=== PATIENT | female | born 1995 | race Hispanic/Latino ===

== ENCOUNTER 2019-01-11 18:43 | Emergency (ER) | payer BC ==
[2019-01-11 19:15] VITALS: O2SAT 100
[2019-01-11] MEDS ORDERED: Dexamethasone 10 MG in Sodium Chloride 0.9% 50 ML IV STA (19:28)
[2019-01-11] MEDS ORDERED: Sodium Chloride 0.9% 1,000 ML IV STA (19:29)
--- NOTE | 2019-01-11 19:34 | ED PDOC ---
HPI: CCC, URI, Sore Throat Time Seen by Provider: 01/11/19 19:20 Chief Complaint (Nursing): ENT Problem Chief Complaint (Provider): THROAT PAIN History Per: Patient History/Exam Limitations: no limitations Have you had recent travel within the past 21 days to any of the following countries: [place], [place], [place] or [place]?: No Onset/Duration Of Symptoms: Days, Persistent Current Symptoms Are (Timing): Constant Location Of Pain: Ear(s) (RIGHT EAR PAIN) Sick Contacts (Context): None Associated Symptoms: Sore Throat, Neck Pain. denies: Fever, Chills, Cough, Sinus Drainage, Nasal Congestion, Nausea, Vomiting, Diarrhea Severity: Moderate Pain Scale Rating Of: 6 Additional History Per: Patient Additional Complaint(s): 23 YEAR FEMALE PRESENTS TO THE EMERGENCY ROOM C/O THROAT PAIN FOR 3 WEEKS. PATIENT STATES SHE COMPLETED A COURSE F 10 DAYS AMOXCILLIN ON THURSDAY AND SECOND COURSE OF PREDNISONE ON THURSDAY. THURSDAY MORNING SHE STATES SHE HAD THE SAME THROAT PAIN. SHE WAS SEEN AT [facility] AND INSTRUCTED TO COME TO ED FOR EVAL. PATIENT DENIES FEVER, NAUSEA, VOMITING OR ABD PAIN. PATIENT STATES SHE WAS TESTED FOR MONO, STREP WITH NEGATIVE RESULTS. Past Medical History Reviewed: Historical Data, Nursing Documentation, Vital Signs Vital Signs: Last Vital Signs Temp 98.7 F 01/11/19 19:10 Pulse 61 01/11/19 19:10 Resp 16 01/11/19 19:10 BP 112/71 01/11/19 19:10 Pulse Ox 100 01/11/19 19:10 - Medical History PMH: No Chronic Diseases - Surgical History Surgical History: No Surg Hx - Family History Family History: States: Unknown Family Hx - Home Medications Home Medications: Ambulatory Orders Medication Instructions Recorded Clindamycin [Cleocin] 300 mg PO Q8H #30 cap 01/11/19 - Allergies Allergies/Adverse Reactions: Allergies Allergy/AdvReac Type Severity Reaction Status Date / Time No Known Allergies Allergy Verified 01/11/19 19:10 Review of Systems ROS Statement: Except As Marked, All Systems Reviewed And Found Negative Constitutional: Negative for: Fever, Chills, Weakness, Malaise ENT: Positive for: Mouth Pain (PATIENT AHS DIFFICULTY OPENING JAW., SWALLOWING FOOD AND SECRETIONS. ), Throat Pain, Throat Swelling Respiratory: Negative for: Cough, Shortness of Breath Gastrointestinal: Negative for: Nausea, Vomiting, Abdominal Pain Physical Exam - Reviewed Nursing Documentation Reviewed: Yes Vital Signs Reviewed: Yes - Physical Exam Appears: Positive for: Well, Non-toxic, No Acute Distress Head Exam: Positive for: ATRAUMATIC, NORMAL INSPECTION, NORMOCEPHALIC Skin: Positive for: Normal Color, Warm, DRY Eye Exam: Positive for: EOMI, Normal appearance, PERRL ENT: Positive for: Normal ENT Inspection, Pharynx Is (ERYTHEMATOUS ), Tonsillar Swelling (WITH EXUDATE) Neck: Positive for: Normal, Pain On Movement Of Neck Cardiovascular/Chest: Positive for: Regular Rate, Rhythm Respiratory: Positive for: CNT, Normal Breath Sounds Gastrointestinal/Abdominal: Positive for: Normal Exam, Soft Back: Positive for: Normal Inspection Extremity: Positive for: Normal ROM Neurological/Psych: Positive for: Awake, Alert, Normal Tone, Oriented - Laboratory Results Result Diagrams: 01/11/19 19:35 01/11/19 19:35 - ECG O2 Sat by Pulse Oximetry: 100 Medical Decision Making Medical Decision Making: CBC CMP CT NECK AND SOFT TISSUES (R/O PTA0 DECARDON 10MG IV 0.9NS 1 L UPREG throat culture rapid strep (-) IV INSERTION Name: SHAQUILLE DAVIDSON Exam Date: Jan 11, 2019 8:25:03 PM EDT Modality Type: CT Description: CT - NECK WITH CORONAL AND SAGITTAL MPRS Gender: F Laterality: Not applicable : 94 Referring Physician: Janis Ponce EXAM: CT Neck with Intravenous Contrast. CLINICAL HISTORY: R/o peritonsillar abcess TECHNIQUE: Axial computed tomography images of the neck with intravenous contrast. Sagittal and coronal reformatted images were generated. 308.04 mGy-cm CONTRAST: With; [id number] 90ML COMPARISON: None provided. FINDINGS: PHARYNX: Unremarkable appearance of the nasopharynx and hypopharynx. Fullness of the palatine tonsils bilaterally compatible with tonsillitis. No peritonsillar abscess formation detected. No pharyngeal mucosal based mass lesions. LARYNX: The larynx is unremarkable. The epiglottis appears normal. RETROPHARYNGEAL SPACE: No retropharyngeal soft tissue swelling or gas. SALIVARY GLANDS: No salivary gland abnormality evident. Unremarkable appearance of the parotid, submandibular, and sublingual glands. LYMPH NODES: No significant lymphadenopathy. THYROID: The thyroid gland is unremarkable. No nodule is evident. BONES: No aggressive appearing osseous lesion. No acute osseous abnormality. INCIDENTAL: Incidental discovery is made of a 1.1 cm mucous retention cyst or polyp in the medial right maxillary sinus. IMPRESSION: 1. Evidence of bilateral tonsillitis. No peritonsillar abscess detected. Electronically signed on Jan 11, 2019 9:30:33 PM EDT by: Emir Carlson M.D., M.B.A., Certified By [employer] Trained MRI and CT Specialist 21:45: Ct scan negative for peritonsillar asbcess. Clincial findings discussed with patient. Patient started on clindamycin 300mg in ED and given rx to continue to [address] Combs for ENT. Patient advised throat culture sent if positive and need for change in treatment she will be called in 2-3 days. Follow-up with PMD as needed. Return to ED precautions given patient starts understanding and agrees with plan. Disposition - Clinical Impression Clinical Impression: Tonsillitis - Patient ED Disposition Is Patient to be Admitted: No - Disposition Referrals: Florin Bolivar MD [Staff Provider] - Disposition: Routine/Home Disposition Time: 21:45 Condition: STABLE Prescriptions: Clindamycin [Cleocin] 300 mg PO Q8H #30 cap Instructions: Sore Throat, Adult (DC) Forms: [facility] ED School/Work Excuse - POA Present On Arrival: None
[2019-01-11 19:52] LABS: HEMOGLOBIN 13.4 g/dL (12.0-16.0); MEAN CELL VOLUME 92.5 fl (81.0-99.0); MEAN CORPUSCULAR HEMOGLOBIN 30.9 pg (27.0-31.0); MEAN CORPUSCULAR HGB CONC 33.4 g/dL (33.0-37.0); RBC 4.32 Mil/uL (3.80-5.20)
[2019-01-11 20:04] LABS: ALB/GLOB RATIO 1.3 (1.0-2.1); ALBUMIN 4.2 g/dL (3.5-5.0); ALT/SGPT 45 U/L (9-52); AST/SGOT 35 U/L (14-36); BLOOD UREA NITROGEN 11 mg/dl (7-17); CALCIUM 9.3 mg/dL (8.4-10.2); GFR NON-AFRICAN AMERICAN > 60
[2019-01-11] MEDS ORDERED: Iohexol 300 100 ML IJ ONE (20:17)
[2019-01-11] MEDS ORDERED: Sodium Chloride 0.9% 50 ML IV ONE (20:18)
[2019-01-11 22:06] VITALS: BP 118/70; PULSE 64; RESP 18; TEMP 98.1
--- NOTE | 2019-01-12 18:50 | CT ---
Date of service: 01/11/2019 PROCEDURE: CT NECK WITH CONTRAST HISTORY: R/O PERITONSILLAR ABSCESS COMPARISON: None available. TECHNIQUE: CT of the neck with intravenous contrast. Coronal and sagittal reformats generated. Intravenous contrast dose: 90 cc Omnipaque 300 Radiation dose: Total exam DLP = 308.04 mGy-cm. This CT exam was performed using one or more of the following dose reduction techniques: Automated exposure control, adjustment of the mA and/or kV according to patient size, and/or use of iterative reconstruction technique. FINDINGS: NASOPHARYNX: Unremarkable. SUPRAHYOID NECK: There is enlarged bilateral palatine tonsils which encroach medially slightly reducing the nida pharyngeal airway.. No definitive evidence of peritonsillar abscess. Minimal asymmetry of the vallecula likely due to some encroaching lingual tonsils. Some residual and or retained secretion may contribute. Remaining oral cavity, parapharyngeal space and retropharyngeal space otherwise unremarkable... INFRAHYOID NECK: Unremarkable larynx, hypopharynx, and supraglottic space. Vocal cords intact. MASS: No large cervical masses or collections. GLANDS: Parotid and submandibular glands unremarkable. Normal size thyroid gland, without nodule. LYMPH NODES: There is mildly enlarged right level 2 lymph node (right jugulodigastric region which measures approximately 19 mm. Some vague infiltration changes are seen in the adjacent subcutaneous fat nonspecific.. CERVICAL SPINE: No fracture or focal lesion. There is straightening of the normal cervical lordosis which may be in part due to patient positioning gantry however underlying element of mild muscle spasm may contribute. VASCULAR STRUCTURES: Unremarkable. OTHER FINDINGS: Small focus of polypoid like mucosal thickening right maxillary antrum IMPRESSION: There enlargement of the palatine tonsils that encroach medially slightly reducing the nida pharyngeal airway. No evidence of peritonsillar abscess. Mildly enlarged right jugulodigastric lymph node
== END 2019-01-11 22:04 | disposition home or self-care (01) ==
LOC: H.ER 18:43
DX: J03.90 Acute tonsillitis, unspecified (principal)
CPT/HCPCS: 70491; 80053; 81025; 85027; 87070; 87430; 96374; 99284; J1100; J7030; Q9967

== ENCOUNTER 2019-02-03 11:44 | Observation (INO) | payer BC ==
[2019-02-03 12:14] VITALS: BMI 29.9
[2019-02-03] MEDS ORDERED: Dexamethasone 10 MG in Sodium Chloride 0.9% 50 ML IV STA (12:34)
[2019-02-03] MEDS ORDERED: Sodium Chloride 0.9% 1,000 ML IV SCH (12:45)
[2019-02-03 13:19] LABS: BASO % 0.2 % (0.0-2.0); EOS % 0.1 % (0.0-4.0); HEMOGLOBIN 12.9 g/dL (12.0-16.0); MEAN CORPUSCULAR HEMOGLOBIN 31.3 pg (27.0-31.0); MEAN CORPUSCULAR HGB CONC 33.3 g/dL (33.0-37.0); MEAN PLATELET VOLUME 7.9 fl (7.2-11.7); MONO # 0.6 K/uL (0.0-0.8); NEUT # 12.8 K/uL (1.8-7.0); NEUT % 82.7 % (50.0-75.0); NRBC % 0.1 % (0.0-0.0); RBC 4.12 Mil/uL (3.80-5.20); RED CELL DISTRIBUTION WIDTH 13.1 % (11.5-14.5); WHITE BLOOD COUNT 15.4 K/uL (4.8-10.8)
[2019-02-03 13:40] LABS: ALB/GLOB RATIO 1.3 (1.0-2.1); ALBUMIN 4.4 g/dL (3.5-5.0); ALT/SGPT 30 U/L (9-52); AST/SGOT 27 U/L (14-36); BLOOD UREA NITROGEN 13 mg/dl (7-17); CALCIUM 9.1 mg/dL (8.4-10.2); GFR NON-AFRICAN AMERICAN > 60
[2019-02-03 13:53] LABS: SQUAMOUS EPITHIAL 2 /hpf (0-5); URINE BACTERIA MANY (<OCC); URINE BILIRUBIN NEGATIVE (NEGATIVE); URINE BLOOD NEGATIVE (NEGATIVE); URINE CLARITY SLIGHTY-CLOUDY (Clear); URINE COLOR YELLOW (YELLOW); URINE GLUCOSE (UA) NEG (NEGATIVE); URINE LEUKOCYTE ESTERASE TRACE Leu/uL (Negative); URINE PROTEIN NEGATIVE (NEGATIVE); URINE UROBILINOGEN 0.2-1.0 mg/dL (0.2-1.0)
--- NOTE | 2019-02-03 14:35 | ED PDOC ---
HPI: General Adult Time Seen by Provider: 02/03/19 12:19 Chief Complaint (Nursing): ENT Problem Chief Complaint (Provider): Sore Throat History Per: Patient History/Exam Limitations: no limitations Onset/Duration Of Symptoms: Days Additional Complaint(s): 23 year old female with no significant medical history presents to ED with worsening sore throat x2 days. 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 Pt reports feeling overall better for the last 10 days until 2 days ago the pain came back. She went to see ENT Dr. Natalie Anna 2 days ago and was given prednisone and sent for blood work. Today the results came back as a bacterial infection pending the culture sensitivity and the patient was prescribed cefdinir but has not started yet. Today the pain and swelling got worse to the point that she can barely talk and cannot swallow her own saliva. She spoke to her ENT doctor who said to go to ER for IVF and IV steroids. She denies fever, cough, stuffy nose, chest pain, stomach pain, and reports negative strep and mono swabs for the last month and a half. PMD: none provided Past Medical History Reviewed: Historical Data, Nursing Documentation, Vital Signs Vital Signs: Last Vital Signs Temp 98.5 F 02/03/19 12:14 Pulse 67 02/03/19 12:14 Resp 20 02/03/19 12:14 BP 120/81 02/03/19 12:14 Pulse Ox 98 02/03/19 12:14 Primary Care Provider: FAMILY PROVIDER,NO - Medical History PMH: No Chronic Diseases - Surgical History Surgical History: No Surg Hx - Family History Family History: States: Unknown Family Hx - Social History Current smoker - smoking cessation education provided: No Alcohol: None Drugs: Denies - Home Medications Home Medications: Ambulatory Orders Medication Instructions Recorded Noreth-Ethinyl Estradiol/Iron 1 tab PO DAILY 02/03/19 [Generess Fe Chewable Tablet] predniSONE [predniSONE Tab] 10 mg PO ASDIR 02/03/19 - Allergies Allergies/Adverse Reactions: Allergies Allergy/AdvReac Type Severity Reaction Status Date / Time No Known Allergies Allergy Verified 02/03/19 12:12 Review of Systems Constitutional: Negative for: Fever, Other (negative strep and mono swabs) ENT: Positive for: Throat Pain (sore throat). Negative for: Nose Congestion Cardiovascular: Negative for: Chest Pain Respiratory: Negative for: Cough Gastrointestinal: Negative for: Abdominal Pain Physical Exam - Reviewed Nursing Documentation Reviewed: Yes Vital Signs Reviewed: Yes - Physical Exam Appears: Positive for: Uncomfortable. Negative for: Non-toxic Skin: Positive for: Warm, Dry Eye Exam: Positive for: EOMI. Negative for: Conjunctival injection ENT: Positive for: Hearing Is (clear), Tonsillar Swelling (moderately enlarged, almost touching uvula), Other (no decreased moisture in mouth, gargled/hot potato voice, no complete airway obstruction, no obvious abscess formation, no trismus). Negative for: Sinus Pain/Drainage, Nasal Congestion, Tonsillar Exudate Neck: Positive for: Supple (+lymphadenopathy bilateral). Negative for: Decreased ROM Cardiovascular/Chest: Positive for: Regular Rate, Rhythm. Negative for: Gallop, Murmur, Irregularly Irregular Respiratory: Positive for: Normal Breath Sounds (equal bilaterally). Negative for: Rales, Rhonchi, Wheezing, Plerual Rub Gastrointestinal/Abdominal: Positive for: Normal Exam, Soft. Negative for: Tenderness Back: Positive for: Normal Inspection Extremity: Positive for: Normal ROM. Negative for: Pedal Edema, Deformity Neurological/Psych: Positive for: Awake, Alert, Oriented (x3) - Laboratory Results Result Diagrams: 02/03/19 13:13 02/03/19 13:13 Lab Results: Total Bilirubin 0.5 mg/dl (0.2-1.3) 02/03/19 13:13 AST 27 U/L (14-36) 02/03/19 13:13 ALT 30 U/L (9-52) 02/03/19 13:13 Alkaline Phosphatase 55 U/L (38-126) 02/03/19 13:13 Total Protein 7.9 G/DL (6.3-8.2) 02/03/19 13:13 Albumin 4.4 g/dL (3.5-5.0) 02/03/19 13:13 Globulin 3.5 gm/dL (2.2-3.9) 02/03/19 13:13 Albumin/Globulin Ratio 1.3 (1.0-2.1) 02/03/19 13:13 Urine Color Yellow (YELLOW) 02/03/19 13:37 Urine Clarity Slighty-cloudy (Clear) 02/03/19 13:37 Urine pH 7.0 (5.0-8.0) 02/03/19 13:37 Ur Specific [place] 1.014 (1.003-1.030) 02/03/19 13:37 Urine Protein Negative mg/dL (NEGATIVE) 02/03/19 13:37 Urine Glucose (UA) Neg mg/dL (NEGATIVE) 02/03/19 13:37 Urine Ketones Negative mg/dL (NEGATIVE) 02/03/19 13:37 Urine Blood Negative (NEGATIVE) 02/03/19 13:37 Urine Nitrate Negative (NEGATIVE) 02/03/19 13:37 Urine Bilirubin Negative (NEGATIVE) 02/03/19 13:37 Urine Urobilinogen 0.2-1.0 mg/dL (0.2-1.0) 02/03/19 13:37 Ur Leukocyte Esterase Trace Norma/uL (Negative) 02/03/19 13:37 Urine RBC (Auto) 2 /hpf (0-3) 02/03/19 13:37 Urine Microscopic WBC 6 /hpf (0-5) H 02/03/19 13:37 Ur Squamous Epith Cells 2 /hpf (0-5) 02/03/19 13:37 Urine Bacteria Many (<OCC) H 02/03/19 13:37 - ECG O2 Sat by Pulse Oximetry: 98 (RA) Pulse Ox Interpretation: Normal Medical Decision Making Medical Decision Making: Time: 1329 Initial Plan: --Labs --IV Fluid 14:[address] 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 Reid to inform of pt Scribe Attestation: Documented by Boy Zhou acting as a scribe for Shahriar Park PA-C. Provider Scribe Attestation: All medical record entries made by the Scribe were at my direction and personally dictated by me. I have reviewed the chart and agree that the record accurately reflects my personal performance of the history, physical exam, medical decision making, and the department course for this patient. I have also personally directed, reviewed, and agree with the discharge instructions and disposition. Disposition - Clinical Impression Clinical Impression: Acute bacterial tonsillitis - Patient ED Disposition Is Patient to be Admitted: Yes Discussed With DrCydney: Aleks Flower Doctor Will See Patient In The: Hospital Counseled Patient/Family Regarding: Studies Performed, Diagnosis - Disposition Disposition Time: 15:10 Condition: STABLE - Pt Status Changed To: Hospital Disposition Of: Inpatient - Admit Certification Admit to Inpatient:: After my assessment, the patient will require hospitalization for at least two midnights. This is because of the severity of symptoms shown, intensity of services needed, and/or the medical risk in this patient being treated as an outpatient. - POA Present On Arrival: None
[2019-02-03] MEDS ORDERED: Piperacillin/Tazobact 4.5 GM in Sodium Chloride 0.9% 100 ML IVPB STA (15:13)
[2019-02-03] MEDS: Piperacillin/Tazobact 4.5 GM in Sodium Chloride 0.9% 100 ML IVPB SCH (21:44)
[2019-02-04] MEDS: Piperacillin/Tazobact 4.5 GM in Sodium Chloride 0.9% 100 ML IVPB SCH ×2 (04:48→09:17)
--- NOTE | 2019-02-04 05:14 | CON ---
DATE: 02/03/2019 REASON FOR CONSULTATION: Throat pain. REQUESTING PHYSICIAN: Flaquito Brandon MD HISTORY OF PRESENT ILLNESS: This is a 23-year-old female who over the past six weeks has been having [id number] throat pain on and off. It is bilateral. The patient goes on steroids, feels better and then comes back. She had pain this time for a few days bilaterally, moderate to severe in intensity. PAST MEDICAL HISTORY: As noted in the chart by me. MEDICATIONS: As noted in the chart by me. ALLERGIES: NOTED IN THE CHART BY ME. PHYSICAL EXAMINATION: HEAD: Atraumatic and normocephalic. FACE: Good facial movements bilaterally. CONSTITUTIONAL: Well fed, well nourished. COMMUNICATION: Communicates well and appropriately. EXTERNAL NOSE AND EARS: No masses, no lesions, no erythema, no edema. INTERNAL NOSE: Deviated septum. No masses, no lesions, no erythema, no edema. ORAL CAVITY AND OROPHARYNX: Erythema and edema of the tonsils. NECK: Supple. LIPS AND GUMS: No masses, no lesions, no erythema, no edema. THYROID: No thyromegaly. No goiter. LYMPH NODES: There is some lymphadenopathy of the neck bilaterally along the IJ chain. ASSESSMENT: 1. Severe tonsillitis. 2. Deviated septum. PLAN: Continue IV antibiotics and steroids. The patient can be discharged home on steroids and antibiotics by mouth. The patient has an ENT that is following her. She can see him as outpatient for possible tonsillectomy. Norm Reid MD [id number]
[2019-02-04 06:38] LABS: BASO % 0.2 % (0.0-2.0); EOS % 0.1 % (0.0-4.0); HEMOGLOBIN 11.6 g/dL (12.0-16.0); LYMPH # 2.6 K/uL (1.0-4.3); LYMPH % 25.2 % (20.0-40.0); MEAN CELL VOLUME 93.7 fl (81.0-99.0); MEAN CORPUSCULAR HEMOGLOBIN 31.6 pg (27.0-31.0); MEAN CORPUSCULAR HGB CONC 33.7 g/dL (33.0-37.0); MEAN PLATELET VOLUME 8.1 fl (7.2-11.7); MONO # 0.8 K/uL (0.0-0.8); MONO % 7.8 % (0.0-10.0); NEUT # 6.9 K/uL (1.8-7.0); NEUT % 66.7 % (50.0-75.0); NRBC % 0.1 % (0.0-0.0); RBC 3.69 Mil/uL (3.80-5.20); RED CELL DISTRIBUTION WIDTH 12.7 % (11.5-14.5); WHITE BLOOD COUNT 10.3 K/uL (4.8-10.8)
[2019-02-04 06:50] LABS: ALB/GLOB RATIO 1.2 (1.0-2.1); ALBUMIN 3.7 g/dL (3.5-5.0); ALT/SGPT 29 U/L (9-52); AST/SGOT 24 U/L (14-36); BLOOD UREA NITROGEN 9 mg/dl (7-17); CALCIUM 8.5 mg/dL (8.4-10.2); GFR NON-AFRICAN AMERICAN > 60
[2019-02-04 08:21] VITALS: BP 105/55; PULSE 57; RESP 20; TEMP 97.7; O2SAT 99
== END 2019-02-04 13:43 | disposition home or self-care (01) ==
LOC: H.ER 11:44 → H.ERHOLD 15:11 → H.MEDSURG1 16:47
PROVIDERS: ADMIT Family Medicine; ATTEND Family Medicine
DX: J03.90 Acute tonsillitis, unspecified (principal); J34.2 Deviated nasal septum
CPT/HCPCS: 36415; 80053; 81003; 81025; 83605; 85025; 87070; 87430; 96361; 96365; 96366; 96375; 96376; 99284; G0378; J1100; J1885; J2543; J7030